=== PATIENT | female | born 1960 | race Caucasian/White ===

== ENCOUNTER 2017-03-11 14:27 | Emergency (ER) | payer MEDICARE ==
[~2017-03-11] VITALS: Ht 165.1 cm; Wt 144.0 kg
[~2017-03-11 14:27] MED LIST: AVELOX400 MG OR; BACTRIM DS1 TAB PO; BUPROPION300 MG PO; BUSPIRONE10 MG PO; CIPRO500 MG OR; CIPROFLOXACN500 MG PO; CITALOPRAM40 MG PO; CLONAZEP ODT1 MG PO; COZAAR25 MG PO; CUBICIN500 MG IV; CYCLOBENZAPR10 MG PO; GRALISE300 MG PO; HALOPERIDOL0.5 MG PO; LAMICTAL150 M1 PO; LEVEMIR FL100 UNIT/M SC; LIPITOR20 M1 PO; LORTAB5 PO; MOBIC7.5 M1 PO; NAPROSYN500 MG OR; NO; NYQUI1 OR; PENICILLN VK500 MG PO; PROZAC10 MG PO; TYLENOL500 MG OR; XANAX1 MG PO; ZOFRAN ODT4 MG PO; ZOLPIDEM10 M1 PO; [UNRECOGNIZED DRUG - OTHER] OR
[2017-03-11] MEDS ORDERED: NEURONTIN300 MG PO (15:12)
[2017-03-11 17:10] LABS: URINE BILIRUBIN - DIPSTICK NEGATIVE (NEGATIVE); URINE BLOOD DIPSTICK NEGATIVE (NEGATIVE); URINE COLOR YELLOW; URINE GLUCOSE - DIPSTICK NEGATIVE (NEGATIVE); URINE KETONE NEGATIVE (NEGATIVE); URINE LEUK ESTERASE NEGATIVE (NEGATIVE); URINE NITRITE - DIPSTICK NEGATIVE (Negative); URINE PH 6.5 (4.5-8.0); URINE PROTEIN - DIPSTICK NEGATIVE (NEG-TRACE); URINE SPECIFIC GRAVITY 1.025
[2017-03-11 17:12] LABS: URINE CLARITY CLEAR
[2017-03-11] MEDS ORDERED: FLEXERIL PO (17:30)
[2017-03-11] MEDS ORDERED: LORTAB 1010 MG PO (17:30)
[2017-03-11 17:34] VITALS: BP 138/60
== END 2017-03-11 17:35 | disposition home or self-care (01) ==
LOC: ED 14:27
PROVIDERS: Emergency Medicine
DX: S23.3XXA Sprain of ligaments of thoracic spine, initial encounter (principal); M54.9 Dorsalgia, unspecified; I10 Essential (primary) hypertension; R07.81 Pleurodynia; M47.814 Spondylosis without myelopathy or radiculopathy, thoracic region

== ENCOUNTER 2017-08-04 15:44 | Emergency (ER) | payer MEDICARE ==
[~2017-08-04] VITALS: Ht 165.1 cm; Wt 150.0 kg
[~2017-08-04 15:44] MED LIST changes: +FLEXERIL PO; +LORTAB 1010 MG PO; +NEURONTIN300 MG PO
[2017-08-04 16:34] LABS: HEMATOCRIT 41.9 % (37.0-47.0); HEMOGLOBIN 13.9 g/dl (12.0-16.0); IMMATURE GRANULOCYTES 0.4 % (0.0-1.0); MEAN CELL VOLUME 86.4 fL CALC (80.0-100.0); MEAN CORPUSCULAR HGB 28.7 pG CALC (26.0-32.0); MEAN CORPUSCULAR HGB CONC 33.2 g/L CALC (32.0-36.0); NEUT# 8.16 thou/uL (2.00-7.15); RED BLOOD COUNT 4.85 mill/uL (4.20-5.60); RED CELL DISTRI WIDTH 13.4 % (11.5-15.5)
[2017-08-04 16:48] LABS: ALKALINE PHOSPHATASE 93 u/l (38-126); ANION GAP 17 (6-22 (CALC)); BILIRUBIN, TOTAL 0.6 mg/dL (0.0-1.4); BUN 18 mg/dL (7-17); BUN/CREATININE RATIO 20 (12-20 (CALC)); CARBON DIOXIDE 26 mmol/l (22-30); CHLORIDE 102 mmol/l (95-108); CREATININE 0.9 mg/dL (0.5-1.0); GFR > 60 ML/MIN (>=60 (CALC)); GFR FOR AFR.AMER. > 60 ML/MIN (>=60 (CALC)); LIPASE 81 u/l (23-300); POTASSIUM 4.5 mmol/l (3.5-5.1); SGOT/AST 16 u/l (14-36); SGPT/ALT 34 u/l (9-52); SODIUM 140 mmol/l (137-146); TOTAL PROTEIN 7.2 g/dL (6.3-8.2)
[2017-08-04 16:53] LABS: D-DIMER 0.42 mg/L (0.19-0.60); INTERNATIONAL NORMALIZED RATIO 0.9 RATIO (0.7-1.3); PROTHROMBIN TIME 10.2 SECONDS (9.0-12.5)
[2017-08-04] MEDS ORDERED: PROTONIX40 MG PO (17:56)
[2017-08-04 18:01] VITALS: BP 157/771
== END 2017-08-04 18:08 | disposition home or self-care (01) ==
LOC: ED 15:44
PROVIDERS: Emergency Medicine
DX: R07.89 Other chest pain (principal); I10 Essential (primary) hypertension; E11.9 Type 2 diabetes mellitus without complications; Z79.4 Long term (current) use of insulin

== ENCOUNTER 2018-07-06 12:09 | Emergency (ER) | payer MEDICARE, MEDICAID ==
[~2018-07-06] VITALS: Ht 165.1 cm; Wt 145.4 kg
[~2018-07-06 12:09] MED LIST changes: +PROTONIX40 MG PO
[2018-07-06] MEDS ORDERED: ZOFRAN4 MG/TAB PO (13:36)
[2018-07-06 13:44] VITALS: BP 188/85
== END 2018-07-06 13:53 | disposition home or self-care (01) ==
LOC: ED 12:09
DX: R51 Headache (principal); R11.0 Nausea

== ENCOUNTER 2020-07-13 11:27 | Emergency (ER) | payer MEDICARE, MEDICAID ==
[~2020-07-13 11:27] MED LIST changes: +ZOFRAN4 MG/TAB PO
[2020-07-13 12:31] LABS: HEMATOCRIT 37.9 % (37.0-47.0); HEMOGLOBIN 12.7 g/dl (12.0-16.0); IMMATURE GRANULOCYTES 0.7 % (0.0-5.0); MEAN CELL VOLUME 85.4 fL CALC (80.0-100.0); MEAN CORPUSCULAR HGB 28.6 pG CALC (26.0-32.0); MEAN CORPUSCULAR HGB CONC 33.5 g/dL CAL (32.0-36.0); NEUT# 11.08 thou/uL (2.00-7.15); RED BLOOD COUNT 4.44 mill/uL (4.20-5.60); RED CELL DISTRI WIDTH 14.6 % (11.5-15.5)
[2020-07-13 12:44] LABS: ALBUMIN 3.4 g/dL (3.2-5.0); ALKALINE PHOSPHATASE 85 u/l (38-126); BUN 18 mg/dL (8-23); BUN/CREATININE RATIO 24 (12-20 (CALC)); CARBON DIOXIDE 27 mmol/l (22-30); CHLORIDE 91 mmol/l (95-108); CREATININE 0.8 mg/dL (0.5-1.0); GFR > 60 ML/MIN (>=60 (CALC)); GFR FOR AFR.AMER. > 60 ML/MIN (>=60 (CALC)); POTASSIUM 4.3 mmol/l (3.5-5.1); SGOT/AST 22 u/l (9-36); TOTAL PROTEIN 6.4 g/dL (6.3-8.2)
[2020-07-13 12:45] LABS: ANION GAP 11 (6-22 (CALC)); SODIUM 125 mmol/l (137-146)
[2020-07-13] MEDS ORDERED: EFFEXOR XR75 MG/CAP PO (14:37)
[2020-07-13] MEDS ORDERED: AMLODIPINE BESYL5 MG PO (14:38)
[2020-07-13 16:52] VITALS: BP 131/83
== END 2020-07-13 17:03 | disposition short-term general hospital (02) ==
LOC: ED 11:27
PROVIDERS: Family Medicine
DX: L03.116 Cellulitis of left lower limb (principal); E11.9 Type 2 diabetes mellitus without complications; I10 Essential (primary) hypertension; Z79.4 Long term (current) use of insulin
CPT/HCPCS: Q9967

== ENCOUNTER 2021-11-23 16:07 | Emergency (ER) | payer MEDICARE, MEDICAID ==
[2021-11-23] VITALS (15 sets, daily range): BP systolic 93–178; BP diastolic 71–102
[~2021-11-23] VITALS: Ht 165.1 cm; Wt 130.4 kg
[~2021-11-23 16:07] MED LIST changes: +AMLODIPINE BESYL5 MG PO; +EFFEXOR XR75 MG/CAP PO
[2021-11-23] MEDS ORDERED: PERCOCET1 TA2 PO (16:29)
[2021-11-23] MEDS ORDERED: EFFEXOR XR75 MG/CAP PO (16:32)
[2021-11-23 16:33] LABS: IMMATURE GRANULOCYTES 0.3 % (0.0-5.0); MEAN CELL VOLUME 83.8 fL CALC (80.0-100.0); MEAN CORPUSCULAR HGB 28.7 pG CALC (26.0-32.0); MEAN CORPUSCULAR HGB CONC 34.3 g/dL CAL (32.0-36.0); NEUT# 6.49 thou/uL (2.00-7.15); RED BLOOD COUNT 5.5 mill/uL (4.20-5.60); RED CELL DISTRI WIDTH 13.2 % (11.5-15.5)
[2021-11-23 16:34] LABS: HEMATOCRIT 46.1 % (37.0-47.0); HEMOGLOBIN 15.8 g/dl (12.0-16.0)
[2021-11-23 16:46] LABS: ALKALINE PHOSPHATASE 100 u/l (38-126); BILIRUBIN, TOTAL 0.6 mg/dL (0.0-1.4); BUN 20 mg/dL (8-23); BUN/CREATININE RATIO 28 (12-20 (CALC)); CARBON DIOXIDE 25 mmol/l (22-30); CREATININE 0.7 mg/dL (0.5-1.0); GFR FOR AFR.AMER. > 60 ML/MIN (>=60 (CALC)); GFR OTHER RACES > 60 ML/MIN (>=60 (CALC)); LIPASE 88 u/l (23-300); POTASSIUM 4.4 mmol/l (3.5-5.1); SGOT/AST 20 u/l (9-36)
[2021-11-23 16:48] LABS: CHLORIDE 95 mmol/l (95-108)
[2021-11-23 16:50] LABS: ALBUMIN 4.9 g/dL (3.2-5.0); ANION GAP 17 (6-22 (CALC)); SODIUM 133 mmol/l (137-146); TOTAL PROTEIN 7.7 g/dL (6.3-8.2)
== END 2021-11-23 20:24 | disposition short-term general hospital (02) ==
LOC: ED 16:07
PROVIDERS: Nurse Practitioner
DX: I20.0 Unstable angina (principal); I10 Essential (primary) hypertension; E11.9 Type 2 diabetes mellitus without complications; E66.01 Morbid (severe) obesity due to excess calories; Z79.4 Long term (current) use of insulin; Z20.822 Contact with and (suspected) exposure to COVID-19
CPT/HCPCS: J1650

== ENCOUNTER 2022-09-09 10:52 | Observation (INO) | payer MEDICARE, MEDICAID ==
[~2022-09-09] VITALS: Ht 165.1 cm; Wt 131.0 kg
[2022-09-09] VITALS (8 sets, daily range): BP systolic 138–169; BP diastolic 67–84
[~2022-09-09 10:52] MED LIST changes: +AMLODIPINE BESY10 MG PO; +CARVEDILOL12.5 MG PO; +EFFIENT10 MG PO; +LAMICTAL25 M2 PO; +LEVEMIR100 UNIT SC; +LIPITOR10 M1 PO; +PERCOCET1 TA2 PO; +ROXICODONE15 M1 PO; +ZITHROMAX250 MG PO
[2022-09-09 11:15] LABS: BASO% 0.5 % (0-3); EOS% 1.5 % (0-8); HEMATOCRIT 43.1 % (37.0-47.0); HEMOGLOBIN 14.1 g/dl (12.0-16.0); IMMATURE GRANULOCYTES 0.5 % (0.0-5.0); MEAN CORPUSCULAR HGB 27.8 pG CALC (26.0-32.0); MEAN CORPUSCULAR HGB CONC 32.7 g/dL CAL (32.0-36.0); MONO% 3.8 % (2-13); NEUT# 6.68 thou/uL (2.00-7.15); NEUT% 76.7 % (42-76); RED BLOOD COUNT 5.07 mill/uL (4.20-5.60); RED CELL DISTRI WIDTH 12.7 % (11.5-15.5)
[2022-09-09 11:27] LABS: ALBUMIN 3.8 g/dL (3.2-5.0); ALKALINE PHOSPHATASE 77 u/l (38-126); ANION GAP 13 (6-22 (CALC)); BILIRUBIN, TOTAL 0.6 mg/dL (0.02-1.3); BUN 18 mg/dL (8-23); BUN/CREATININE RATIO 27 (12-20 (CALC)); CARBON DIOXIDE 26 mmol/l (22-30); CHLORIDE 100 mmol/l (95-108); CREATININE 0.7 mg/dL (0.5-1.0); GFR FOR AFR.AMER. > 60 ML/MIN (>=60 (CALC)); GFR OTHER RACES > 60 ML/MIN (>=60 (CALC)); POTASSIUM 4.5 mmol/l (3.5-5.1); SODIUM 134 mmol/l (137-146); TOTAL PROTEIN 6.5 g/dL (6.3-8.2)
[2022-09-09 11:28] LABS: SGOT/AST 19 u/l (9-36)
[2022-09-09] MEDS ORDERED: HUMALOG100 UNIT/M SC (11:47)
[2022-09-09] MEDS ORDERED: TRESIBA100 UNIT/M SC (11:49)
[2022-09-09] MEDS ORDERED: ASPIRIN81 MG PO (11:51)
[2022-09-09] MEDS ORDERED: LOSARTAN POTASS50 MG PO (18:25)
[2022-09-09] MEDS ORDERED: XTAMPZA ER18 MG PO (18:26)
[2022-09-10 00:12] VITALS: BP 132/58
[2022-09-10 04:32] VITALS: BP 159/68
[2022-09-10 07:23] VITALS: BP 166/78
[2022-09-10 08:10] LABS: BASO% 0.5 % (0-3); EOS% 1.7 % (0-8); HEMATOCRIT 44.1 % (37.0-47.0); HEMOGLOBIN 14.1 g/dl (12.0-16.0); IMMATURE GRANULOCYTES 0.7 % (0.0-5.0); LYMPH% 21.6 % (15-41); MEAN CELL VOLUME 86.8 fL CALC (80.0-100.0); MEAN CORPUSCULAR HGB 27.8 pG CALC (26.0-32.0); NEUT# 6.19 thou/uL (2.00-7.15); NEUT% 70.5 % (42-76); RED BLOOD COUNT 5.08 mill/uL (4.20-5.60); RED CELL DISTRI WIDTH 12.8 % (11.5-15.5)
[2022-09-10 08:26] LABS: ALBUMIN 3.8 g/dL (3.2-5.0); ALKALINE PHOSPHATASE 70 u/l (38-126); ANION GAP 8 (6-22 (CALC)); BILIRUBIN, TOTAL 0.6 mg/dL (0.02-1.3); BUN 18 mg/dL (8-23); BUN/CREATININE RATIO 27 (12-20 (CALC)); CALCULATED LDLCHOLESTEROL 170 mg/dL (62-129 (CALC)); CARBON DIOXIDE 28 mmol/l (22-30); CHLORIDE 104 mmol/l (95-108); CHOLESTEROL HDL RATIO 5.5 (<4.4 (CALC)); CREATININE 0.7 mg/dL (0.5-1.0); GFR FOR AFR.AMER. > 60 ML/MIN (>=60 (CALC)); GFR OTHER RACES > 60 ML/MIN (>=60 (CALC)); HDL CHOLESTEROL 48 mg/dL (39.0-59.0); MAGNESIUM 1.8 mg/dL (1.6-2.3); POTASSIUM 4.5 mmol/l (3.5-5.1); SGOT/AST 16 u/l (9-36); SODIUM 136 mmol/l (137-146); TOTAL CHOLESTEROL 261 mg/dl (0-199); TOTAL PROTEIN 6.6 g/dL (6.3-8.2); TOTAL TRIGLYCERIDES 218 mg/dl (0-149); VLDL CHOLESTROL 44 mg/dl (1-41 (CALC))
[2022-09-10] MEDS ORDERED: ISOSORB MONO30 MG PO (10:05)
[2022-09-10] MEDS ORDERED: ATORVASTATIN CA40 MG PO (10:05)
[2022-09-10 11:38] VITALS: BP 136/64
== END 2022-09-10 11:51 | disposition home or self-care (01) ==
LOC: ED 10:52 → MS2 11:52
PROVIDERS: Family Medicine; Nurse Practitioner Family; ADMIT Internal Medicine; ATTEND Internal Medicine
DX: R07.9 Chest pain, unspecified (principal); R01.1 Cardiac murmur, unspecified; I10 Essential (primary) hypertension; E11.65 Type 2 diabetes mellitus with hyperglycemia; E11.69 Type 2 diabetes mellitus with other specified complication; E78.5 Hyperlipidemia, unspecified; I25.10 Atherosclerotic heart disease of native coronary artery without angina pectoris; E66.01 Morbid (severe) obesity due to excess calories; Z79.4 Long term (current) use of insulin; Z95.5 Presence of coronary angioplasty implant and graft; Z87.891 Personal history of nicotine dependence; Z79.02 Long term (current) use of antithrombotics/antiplatelets; Z79.82 Long term (current) use of aspirin
CPT/HCPCS: J1650

== ENCOUNTER 2023-10-15 11:04 | Observation (INO) | payer MEDICARE, MEDICAID ==
[~2023-10-15] VITALS: Ht 170.2 cm; Wt 103.5 kg
[2023-10-15] VITALS (18 sets, daily range): BP systolic 136–193; BP diastolic 64–122
[~2023-10-15 11:04] MED LIST changes: +ASPIRIN81 MG PO; +ATORVASTATIN CA40 MG PO; +HUMALOG100 UNIT/M SC; +ISOSORB MONO30 MG PO; +LOSARTAN POTASS50 MG PO; +TRESIBA100 UNIT/M SC; +VENLAFAXINE HCL75 M1 PO; +VIBRAMYCIN100 M2 PO; +XTAMPZA ER18 MG PO
--- NOTE | 2023-10-15 11:08 | NUR ---
PATIENT TO ROOM 12 REFUSED WHEELCHAIR
[2023-10-15] MEDS ORDERED: ASPIRIN 81 MG/TAB PO ONE (11:10)
[2023-10-15] MEDS ORDERED: NITROGLYCERIN 0.4 MG/TAB SL ONE (11:20)
[2023-10-15 11:35] LABS: BASO% 0.6 % (0-3); EOS% 1.4 % (0-8); HEMATOCRIT 43.8 % (37.0-47.0); HEMOGLOBIN 14.5 g/dl (12.0-16.0); IMMATURE GRANULOCYTES 0.4 % (0.0-5.0); LYMPH% 22.5 % (15-41); MEAN CELL VOLUME 85.4 fL CALC (80.0-100.0); MEAN CORPUSCULAR HGB 28.3 pG CALC (26.0-32.0); MEAN CORPUSCULAR HGB CONC 33.1 g/dL CAL (32.0-36.0); MONO% 4.4 % (2-13); NEUT# 6.01 thou/uL (2.00-7.15); NEUT% 70.7 % (42-76); RED BLOOD COUNT 5.13 mill/uL (4.20-5.60)
[2023-10-15] MEDS ORDERED: ARIPIPRAZOLE2 MG PO (11:36)
[2023-10-15 11:49] LABS: ALBUMIN 4.2 g/dL (3.2-5.0); ALKALINE PHOSPHATASE 74 u/l (38-126); ANION GAP 10 (6-22 (CALC)); BILIRUBIN, TOTAL 0.6 mg/dL (0.02-1.3); BUN 17 mg/dL (8-23); BUN/CREATININE RATIO 29 (12-20 (CALC)); CARBON DIOXIDE 26 mmol/l (22-30); CHLORIDE 102 mmol/l (95-108); CREATININE 0.6 mg/dL (0.5-1.0); ESTIMATED GFR 100 ML/MIN (>=90 (CALC)); POTASSIUM 4.4 mmol/l (3.5-5.1); SGOT/AST 21 u/l (9-36); SODIUM 132 mmol/l (137-146); TOTAL PROTEIN 7.2 g/dL (6.3-8.2)
--- NOTE | 2023-10-15 12:00 | NUR ---
PT SITTING UP AT BEDSIDE; DENIES ANY PAIN AT THIS TIME
--- NOTE | 2023-10-15 13:00 | NUR ---
PT ASSISTED TO BR; STEADY GAIT
--- NOTE | 2023-10-15 14:00 | NUR ---
DR MIKE AT BEDSIDE TO DISCUSS POC AND FINDINGS
[2023-10-15] MEDS ORDERED: ACETAMINOPHEN 325 MG/TAB PO PRN (14:25)
[2023-10-15] MEDS ORDERED: MAGNESIUM HYDROXIDE 30 ML UDC PO PRN (14:25)
[2023-10-15] MEDS ORDERED: MORPHINE SULFATE 4 MG/ML VIAL IV PRN (14:25)
[2023-10-15] MEDS ORDERED: NITROGLYCERIN 0.4 MG/TAB SL PRN (14:25)
[2023-10-15] MEDS ORDERED: SODIUM CHLORIDE 0.9% 1,000 ML IV PRN (14:25)
[2023-10-15] MEDS ORDERED: oxyCODONE HCL 5 MG/TAB PO PRN (14:30)
--- NOTE | 2023-10-15 15:00 | NUR ---
PT SITTING UP AT BEDSIDE NO S/S OF DISTRESS NOTED
--- NOTE | 2023-10-15 16:02 | NUR ---
REPORT RECIVED VIA TELEPHONE TABBY LARSEN RN
--- NOTE | 2023-10-15 16:02 | NUR ---
REPORT GIVEN TO AARON CLEARY NURSE.
--- NOTE | 2023-10-15 16:02 | NUR ---
PT ARRIVED VIA WC WITH SETH ALFARO. PT ABLE TO AMBULATE VIA STAND BY ASSIST. PT DENIES CHEST PAIN. ADMISSION ASSESSMENT COMPLETED. PT A&OX3. PT GLUCOSE 261. IVF INFUSING PER EMAR ORDERS. PT IV INTACT/FLUSHED. TELE MONITOR IN PLACE CONTINOUS MONITORING PER ED. ALLERGY BAND APPLIED. FALL/SAFTEY PRECAUTION IN PLACE. CALL LIGHT WITHIN REACH
[2023-10-15] MEDS ORDERED: INSULIN LISPRO 100 UNITS/ML ML SC SCH (17:00)
--- NOTE | 2023-10-15 19:59 | NUR ---
BEDSIDE SHIFT REPORT COMPLETED. ALERT, ORIENTED X4. DENIES PAIN OR DISCOMFORT. CALL LIGHT IN REACH.
--- NOTE | 2023-10-15 20:09 | NUR ---
p[ts glucose was 331 mg/dL @1954 RN notified.
[2023-10-15] MEDS ORDERED: ATORVASTATIN CALCIUM 40 MG/TAB PO SCH (21:00)
[2023-10-15] MEDS ORDERED: METOPROLOL TARTRATE 25 MG/TAB PO SCH (21:00)
[2023-10-15] MEDS ORDERED: ENOXAPARIN SODIUM 40 MG/0.4 ML SYR SC SCH (21:00)
[2023-10-15] MEDS ORDERED: CARVEDILOL 6.25 MG/TAB PO SCH (21:00)
[2023-10-15] MEDS ORDERED: INSULIN DETEMIR 100 UNITS/ML SC SCH (21:00)
--- NOTE | 2023-10-15 23:00 | NUR ---
C/O CHEST PAIN 06/17. REQUESTED A NITRO, THATS WHAT SHE DOES AT HOME. 1 SL NITRO AND PRN MORPHINE GIVEN WITH GOOD RELIEF. ACCU CHECK 331 MEDICATED WITH NOVOLOG AND LONG ACTING INSULIN. CALL LIGHT IN REACH. USES BEDSIDE COMMODE WITH NO ASSIST.
[2023-10-16 00:30] VITALS: BP 150/63
--- NOTE | 2023-10-16 04:00 | NUR ---
SLEPT WELL DURING NIGHT. NO C/O PAIN OR DISCOMFORT. ABLE TO MAKE NEEDS KNOWN. NO C/O CHEST PAIN DURING NIGHT AFTER PREVIOUS ONE.
[2023-10-16 04:45] VITALS: BP 155/67
[2023-10-16 05:54] LABS: CHOLESTEROL HDL RATIO 5.6 (<4.4 (CALC)); MAGNESIUM 1.6 mg/dL (1.6-2.3)
[2023-10-16 06:08] VITALS: BP 168/81
[2023-10-16 06:14] LABS: BASO% 0.7 % (0-3); HEMATOCRIT 40.2 % (37.0-47.0); HEMOGLOBIN 13.2 g/dl (12.0-16.0); IMMATURE GRANULOCYTES 0.3 % (0.0-5.0); LYMPH% 30.6 % (15-41); MEAN CELL VOLUME 85.7 fL CALC (80.0-100.0); MEAN CORPUSCULAR HGB 28.1 pG CALC (26.0-32.0); MEAN CORPUSCULAR HGB CONC 32.8 g/dL CAL (32.0-36.0); MONO% 6.9 % (2-13); NEUT# 4.49 thou/uL (2.00-7.15); NEUT% 59.5 % (42-76); RED BLOOD COUNT 4.69 mill/uL (4.20-5.60); RED CELL DISTRI WIDTH 13.1 % (11.5-15.5)
[2023-10-16 06:18] LABS: CREATININE 0.6 mg/dL (0.5-1.0); POTASSIUM 4.2 mmol/l (3.5-5.1)
--- NOTE | 2023-10-16 07:24 | NUR ---
PT IN AOX4, RESPIRATIONS ARE EVEN AND UNLABORED, LUNGS ARE CLEAR, BOWEL SOUNDS ARE ACTIVE, PEDAL PULSES ARE PALPABLE TO TOUCH, PT REPORTS BACK PAIN AT A 6 ON A 0-10 PAIN SCALE, STATES SHE TAKES PAIN MEDICATION FOR BACK PAIN AT HOME, WILL BRING ORDERED PRN PAIN MEDICATION WITH MORNING MEDICATIONS.
[2023-10-16 08:20] VITALS: BP 168/81
[2023-10-16] MEDS ORDERED: INSULIN DETEMIR 100 UNITS/ML SC SCH (09:00)
[2023-10-16] MEDS ORDERED: ASPIRIN 81 MG/TAB PO SCH (09:00)
[2023-10-16] MEDS ORDERED: VENLAFAXINE HYDROCHLORIDE 75 MG/CAP PO SCH (09:00)
[2023-10-16] MEDS ORDERED: amLODIPine BESYLATE 5 MG/TAB PO SCH (09:00)
[2023-10-16] MEDS ORDERED: LOSARTAN Potassium 50 MG/TAB PO SCH (09:00)
--- NOTE | 2023-10-16 09:48 | NUR ---
DR RASCON AT BEDSIDE DISCUSSING PLAN OF CARE WITH PT AT THIS TIME.
[2023-10-16] MEDS ORDERED: NITROGLYCER0.4 MG SL (09:53)
--- NOTE | 2023-10-16 09:58 | NUR ---
DR MCKEON AT BEDSIDE AT THIS TIME VIA [facility] DISCUSSING PLAN OF CARE.
[2023-10-16] MEDS ORDERED: COZAAR100 MG PO (11:55)
--- NOTE | 2023-10-16 12:07 | NUR ---
DISCHARGE INSTRUCTIONS REVIEWED WITH PT. IV DC, TELE BOX DC'D AND PLACED IN RETURN BIN AT NURSES STATION.
[2023-10-16] MEDS ORDERED: CARVEDILOL 25 MG/TAB PO SCH (21:00)
[2023-10-17] MEDS ORDERED: LOSARTAN Potassium 50 MG/TAB PO SCH (09:00)
== END 2023-10-16 12:10 | disposition home or self-care (01) ==
LOC: ED 11:04 → ED-I 13:58 → ED 14:47 → MS2 14:48
PROVIDERS: Family Medicine; ADMIT Student in an Organized Health Care Education/Training Program; ATTEND Student in an Organized Health Care Education/Training Program
DX: R07.89 Other chest pain (principal); I49.3 Ventricular premature depolarization; I10 Essential (primary) hypertension; E11.65 Type 2 diabetes mellitus with hyperglycemia; I25.10 Atherosclerotic heart disease of native coronary artery without angina pectoris; E78.5 Hyperlipidemia, unspecified; E66.01 Morbid (severe) obesity due to excess calories; Z86.14 Personal history of Methicillin resistant Staphylococcus aureus infection; Z79.4 Long term (current) use of insulin; Z95.5 Presence of coronary angioplasty implant and graft; Z79.82 Long term (current) use of aspirin; Z68.42 Body mass index [BMI] 45.0-49.9, adult; Z87.891 Personal history of nicotine dependence
CPT/HCPCS: J1650

== ENCOUNTER 2024-03-02 11:35 | Emergency (ER) | payer MEDICARE, MEDICAID ==
[~2024-03-02] VITALS: Ht 170.2 cm; Wt 129.0 kg
[~2024-03-02 11:35] MED LIST changes: +ARIPIPRAZOLE2 MG PO; +COZAAR100 MG PO; +NITROGLYCER0.4 MG SL
[2024-03-02 11:42] VITALS: BP 200/78
[2024-03-02 11:58] VITALS: BP 150/66
[2024-03-02] MEDS ORDERED: SODIUM CHLORIDE 0.9% 1,000 ML IV ONE (12:00)
[2024-03-02 12:01] VITALS: BP 136/79
[2024-03-02 12:19] LABS: BASO% 0.7 % (0-3); EOS% 1.1 % (0-8); HEMATOCRIT 43.3 % (37.0-47.0); HEMOGLOBIN 14.1 g/dl (12.0-16.0); IMMATURE GRANULOCYTES 0.7 % (0.0-5.0); LYMPH% 17.7 % (15-41); MEAN CELL VOLUME 86.6 fL CALC (80.0-100.0); MEAN CORPUSCULAR HGB 28.2 pG CALC (26.0-32.0); MEAN CORPUSCULAR HGB CONC 32.6 g/dL CAL (32.0-36.0); MONO% 5.6 % (2-13); NEUT# 6.48 thou/uL (2.00-7.15); NEUT% 74.2 % (42-76)
[2024-03-02 12:30] LABS: BILIRUBIN, TOTAL 0.6 mg/dL (0.02-1.3); CREATININE 0.7 mg/dL (0.5-1.0); POTASSIUM 4.7 mmol/l (3.5-5.1); TOTAL PROTEIN 6.7 g/dL (6.3-8.2)
[2024-03-02 12:38] VITALS: BP 127/66
[2024-03-02] MEDS ORDERED: INSULIN REGULAR (HUMAN) 100 UNIT/ML INJ SC ONE (13:00)
[2024-03-02 13:42] VITALS: BP 127/66
== END 2024-03-02 13:46 | disposition home or self-care (01) ==
LOC: ED 11:35
PROVIDERS: Family Medicine
DX: R42 Dizziness and giddiness (principal); E11.65 Type 2 diabetes mellitus with hyperglycemia; I10 Essential (primary) hypertension; E78.5 Hyperlipidemia, unspecified; I25.10 Atherosclerotic heart disease of native coronary artery without angina pectoris; Z95.5 Presence of coronary angioplasty implant and graft; Z79.4 Long term (current) use of insulin

== ENCOUNTER 2024-03-27 10:44 | Emergency (ER) | payer MEDICARE, MEDICAID ==
[~2024-03-27] VITALS: Ht 170.2 cm; Wt 129.0 kg
[2024-03-27 10:50] VITALS: BP 202/81
[2024-03-27 10:53] VITALS: BP 184/83
[2024-03-27 11:00] VITALS: BP 176/103
[2024-03-27 11:10] VITALS: BP 187/84
[2024-03-27] MEDS ORDERED: MORPHINE SULFATE 4 MG/ML VIAL IV ONE (11:20)
[2024-03-27 11:38] LABS: BASO% 0.7 % (0-3); EOS% 1.6 % (0-8); HEMATOCRIT 44.3 % (37.0-47.0); HEMOGLOBIN 14.7 g/dl (12.0-16.0); IMMATURE GRANULOCYTES 0.3 % (0.0-5.0); LYMPH% 20.3 % (15-41); MEAN CORPUSCULAR HGB 28.2 pG CALC (26.0-32.0); MEAN CORPUSCULAR HGB CONC 33.2 g/dL CAL (32.0-36.0); MONO% 5.5 % (2-13); NEUT# 5.51 thou/uL (2.00-7.15); NEUT% 71.6 % (42-76); RED BLOOD COUNT 5.21 mill/uL (4.20-5.60); RED CELL DISTRI WIDTH 12.7 % (11.5-15.5)
[2024-03-27 11:41] LABS: ALKALINE PHOSPHATASE 76 u/l (38-126); ANION GAP 10 (6-22 (CALC)); BILIRUBIN, TOTAL 0.7 mg/dL (0.02-1.3); BUN 20 mg/dL (8-23); BUN/CREATININE RATIO 32 (12-20 (CALC)); CARBON DIOXIDE 29 mmol/l (22-30); CHLORIDE 99 mmol/l (95-108); CREATININE 0.6 mg/dL (0.5-1.0); ESTIMATED GFR 100 ML/MIN (>=90 (CALC)); POTASSIUM 4.5 mmol/l (3.5-5.1); SGOT/AST 28 u/l (9-36); SODIUM 133 mmol/l (137-146); TOTAL PROTEIN 6.7 g/dL (6.3-8.2)
[2024-03-27 11:45] LABS: D-DIMER 0.5 mg/L (0.19-0.60)
[2024-03-27 11:47] VITALS: BP 181/87
[2024-03-27 12:14] LABS: PROTHROMBIN TIME 10.4 SECONDS (9.0-12.5)
[2024-03-27 12:36] VITALS: BP 181/87
== END 2024-03-27 12:49 | disposition home or self-care (01) ==
LOC: ED 10:44
PROVIDERS: Family Medicine
DX: S20.212A Contusion of left front wall of thorax, initial encounter (principal); E11.9 Type 2 diabetes mellitus without complications; I10 Essential (primary) hypertension; I25.10 Atherosclerotic heart disease of native coronary artery without angina pectoris; E78.5 Hyperlipidemia, unspecified; Z95.5 Presence of coronary angioplasty implant and graft; Z79.4 Long term (current) use of insulin; W19.XXXA Unspecified fall, initial encounter

== ENCOUNTER 2024-04-07 06:51 | Emergency (ER) | payer MEDICARE, MEDICAID ==
[~2024-04-07] VITALS: Ht 170.2 cm; Wt 125.0 kg
[2024-04-07] VITALS (11 sets, daily range): BP systolic 51–217; BP diastolic 28–125
[2024-04-07] MEDS ORDERED: SODIUM CHLORIDE 0.9% 1,000 ML IV STA (07:06)
[2024-04-07] MEDS ORDERED: MORPHINE SULFATE 4 MG/ML VIAL IV STA (07:06)
[2024-04-07] MEDS ORDERED: ONDANSETRON HCl 4 MG/2 ML SDV IV ONE (07:10)
[2024-04-07 07:51] LABS: BASO% 0.3 % (0-3); EOS% 0.6 % (0-8); HEMATOCRIT 46.6 % (37.0-47.0); HEMOGLOBIN 15.5 g/dl (12.0-16.0); IMMATURE GRANULOCYTES 0.6 % (0.0-5.0); LYMPH% 11.8 % (15-41); MEAN CELL VOLUME 85.8 fL CALC (80.0-100.0); MEAN CORPUSCULAR HGB 28.5 pG CALC (26.0-32.0); MEAN CORPUSCULAR HGB CONC 33.3 g/dL CAL (32.0-36.0); MONO% 3.2 % (2-13); NEUT# 7.8 thou/uL (2.00-7.15); NEUT% 83.5 % (42-76); RED BLOOD COUNT 5.43 mill/uL (4.20-5.60); RED CELL DISTRI WIDTH 12.5 % (11.5-15.5)
[2024-04-07 08:02] LABS: ALBUMIN 4.5 g/dL (3.2-5.0); CREATININE 0.7 mg/dL (0.5-1.0); POTASSIUM 4.3 mmol/l (3.5-5.1); TOTAL PROTEIN 7.5 g/dL (6.3-8.2)
[2024-04-07 08:08] LABS: BILIRUBIN, TOTAL 1.1 mg/dL (0.02-1.3)
[2024-04-07 08:32] LABS: URINE BILIRUBIN - DIPSTICK Negative (NEGATIVE); URINE BLOOD DIPSTICK Negative (NEGATIVE); URINE GLUCOSE - DIPSTICK >=1000 mg/dL (NEGATIVE); URINE KETONE 40 mg/dL (NEGATIVE); URINE LEUK ESTERASE Negative (NEGATIVE); URINE NITRITE - DIPSTICK Negative (Negative); URINE PROTEIN - DIPSTICK 30 mg/dL (NEG-TRACE); URINE UROBILINOGEN - DIPSTICK 0.2 E.U./dL (0.2)
[2024-04-07 08:36] LABS: URINE COLOR Yellow
[2024-04-07 08:51] LABS: URINE EPITHELIAL CELLS MODERATE EPI/hpf (0-FEW); URINE WBC 0-2 WBC/hpf (0-5)
[2024-04-07] MEDS ORDERED: GOLYTELY PO (10:26)
[2024-04-07] MEDS ORDERED: MIRALAX17 GM PO (10:26)
[2024-04-07] MEDS ORDERED: COLACE100 MG PO (10:26)
== END 2024-04-07 10:50 | disposition home or self-care (01) ==
LOC: ED 06:51
PROVIDERS: Emergency Medicine
DX: K59.00 Constipation, unspecified (principal); R07.89 Other chest pain; E11.9 Type 2 diabetes mellitus without complications; I10 Essential (primary) hypertension; I25.10 Atherosclerotic heart disease of native coronary artery without angina pectoris; E78.5 Hyperlipidemia, unspecified; Z79.4 Long term (current) use of insulin; Z95.5 Presence of coronary angioplasty implant and graft
CPT/HCPCS: J2405; Q9967